=== PATIENT | female | born 1935 | race Caucasian/White ===

== ENCOUNTER 2016-06-29 12:30 | Inpatient (IN) | payer MEDICARE, BC ==
[2016-06-29] VITALS (8 sets, daily range): BP systolic 140–161; RESP 18–24; TEMP 98.8–101.1; Ht 157.5 cm; Wt 48.2 kg
[~2016-06-29] VITALS: Ht 157.5 cm; Wt 48.2 kg
[2016-06-29] MEDS ORDERED: DUONEB INH SCH (12:35)
[2016-06-29] MEDS ORDERED: SALINE FLUSH 10 ML FLUSH PRN (13:50)
[2016-06-29] MEDS ORDERED: AZITHROMYCIN 250 MG TAB PO ONE (13:50)
[2016-06-29] MEDS ORDERED: DUONEB INH PRN (13:50)
[2016-06-29] MEDS ORDERED: SACCHA BOULARDII 250MG CAP PO SCH (14:56)
[2016-06-29] MEDS: CEFTRIAXONE 1 GM in SODIUM CHLORIDE 0.9% 50 ML IV SCH (15:02)
[2016-06-29] MEDS: AMIODARONE 200 MG TAB PO SCH (15:03)
[2016-06-29] MEDS: LEVOTHYROXINE 0.1 MG TAB PO SCH (15:03)
[2016-06-29] MEDS: Rivaroxaban 15 MG TAB PO SCH (15:27)
[2016-06-29] MEDS: SACCHA BOULARDII 250MG CAP PO SCH (15:27)
[2016-06-29] MEDS: FAMOTIDINE 20 MG TAB PO SCH (20:11)
[2016-06-29] MEDS: SALINE FLUSH 10 ML FLUSH SCH (20:11)
[2016-06-30] VITALS (7 sets, daily range): BP systolic 131–156; RESP 18–20; TEMP 97.7–99.5
[2016-06-30] MEDS: SODIUM CHLORIDE 0.9% FLUSH BAG 500 ML IV SCH (05:04)
[2016-06-30] MEDS: LEVOTHYROXINE 0.1 MG TAB PO SCH (06:06)
[2016-06-30] MEDS: SALINE FLUSH 10 ML FLUSH SCH ×2 (08:59→20:14)
[2016-06-30] MEDS: CEFTRIAXONE 1 GM in SODIUM CHLORIDE 0.9% 50 ML IV SCH (08:59)
[2016-06-30] MEDS ORDERED: AZITHROMYCIN 250 MG TAB PO SCH (09:00)
[2016-06-30] MEDS: Rivaroxaban 15 MG TAB PO SCH ×2 (09:00→13:16)
[2016-06-30] MEDS: AMIODARONE 200 MG TAB PO SCH (09:00)
[2016-06-30] MEDS: SACCHA BOULARDII 250MG CAP PO SCH (09:00)
[2016-06-30] MEDS: ACETAMINOPHEN 325 MG TAB PO PRN ×3 (10:37→20:15)
[2016-06-30] MEDS: Senna/DSS 50/8.6 MG TAB PO SCH (13:16)
[2016-06-30] MEDS: POLYETHYLENE GLYCOL 17 GM PACKET PO SCH ×2 (13:16→23:41)
[2016-06-30] MEDS: FAMOTIDINE 20 MG TAB PO SCH (20:14)
[2016-07-01] VITALS (9 sets, daily range): BP systolic 133–147; RESP 18–20; TEMP 97.7–99.3
[2016-07-01] MEDS: SODIUM CHLORIDE 0.9% FLUSH BAG 500 ML IV SCH ×2 (02:49→20:12)
[2016-07-01] MEDS: LEVOTHYROXINE 0.1 MG TAB PO SCH (06:15)
[2016-07-01] MEDS: ACETAMINOPHEN 325 MG TAB PO PRN ×4 (06:17→20:10)
[2016-07-01] MEDS: SALINE FLUSH 10 ML FLUSH SCH ×2 (08:08→20:09)
[2016-07-01] MEDS: AMIODARONE 200 MG TAB PO SCH (08:09)
[2016-07-01] MEDS: Rivaroxaban 15 MG TAB PO SCH (08:09)
[2016-07-01] MEDS: SACCHA BOULARDII 250MG CAP PO SCH (08:09)
[2016-07-01] MEDS: AMOXICILLIN/CLAV 875 MG TAB PO SCH ×2 (08:09→20:10)
[2016-07-01] MEDS: ASPIRIN EC 81 MG TAB PO SCH (08:09)
[2016-07-01] MEDS: Senna/DSS 50/8.6 MG TAB PO SCH (08:50)
[2016-07-01] MEDS: POLYETHYLENE GLYCOL 17 GM PACKET PO SCH ×2 (08:50→20:12)
[2016-07-01] MEDS: FAMOTIDINE 20 MG TAB PO SCH (20:09)
[2016-07-02] VITALS (8 sets, daily range): BP systolic 141–150; RESP 16–18; TEMP 97.7–98.7
[2016-07-02] MEDS: ACETAMINOPHEN 325 MG TAB PO PRN ×3 (05:43→16:38)
[2016-07-02] MEDS: LEVOTHYROXINE 0.1 MG TAB PO SCH (05:43)
[2016-07-02] MEDS: Rivaroxaban 15 MG TAB PO SCH (08:27)
[2016-07-02] MEDS: AMOXICILLIN/CLAV 875 MG TAB PO SCH ×2 (08:27→16:29)
[2016-07-02] MEDS: SACCHA BOULARDII 250MG CAP PO SCH (08:27)
[2016-07-02] MEDS: AMIODARONE 200 MG TAB PO SCH (08:27)
[2016-07-02] MEDS: ASPIRIN EC 81 MG TAB PO SCH (08:27)
[2016-07-02] MEDS: Senna/DSS 50/8.6 MG TAB PO SCH (08:28)
[2016-07-02] MEDS: SALINE FLUSH 10 ML FLUSH SCH (08:28)
[2016-07-02] MEDS: POLYETHYLENE GLYCOL 17 GM PACKET PO SCH (08:28)
== END 2016-07-02 16:50 | disposition home or self-care (01) | DRG 189 ==
LOC: ENRESERVTM → ENRESERVDT → ENPENDDIS 12:41 → PCU2 12:41 → 3NT 06-30 17:11
PROVIDERS: ADMIT Internal Medicine; ATTEND Internal Medicine
CPT/HCPCS: 71020; 80053; 81001; 85025; 87040; 87071; 87278; 87299; 87804; 94799; 99232; 99233